=== PATIENT | female | born 1945 | race Caucasian/White ===

== ENCOUNTER 2017-01-29 20:28 | Emergency (ER) | payer MEDICARE, BC ==
--- NOTE | ~2017-01-29 | CT71 ---
[facility] A Service of [facility] RADIOLOGY TEXT RESULTS PATIENT: CRISTY FERNANDEZ LOCATION: MICHAEL : 45 UNIT #: [id number] AGE: [address]: Wilfrid Proctor MD SEX: F ORDER DR: [id number] [facility]. [place], [place] [address] [id number] E MR#: [id number] Acc #: [id number] NAME: CRISTY FERNANDEZ : 1945 SEX: F STUDY DATE/TIME: 01/29/2017 20:48 UNIT: MICHAEL ROOM: STUDY DESCRIPTION: CT Head Wo Contrast Attending Physician: Wilfrid Proctor M.D. Ordering Physician: Wilfrid Proctor M.D. Primary Care Physician: Sammy Canada M.D. MEDICAL IMAGING REPORT This report is preliminary unless electronic signature is present EXAM CT head, 01/29/2017 INDICATION Severe headache and vomiting. 1-day duration. TECHNIQUE CT head without contrast. This CT exam was performed with one or more of the following radiation dose reduction techniques: automatic exposure control, adjustment of mA and/or kV according to patient size, and iterative reconstruction. COMPARISON CT head 05/25/2016. FINDINGS Axial noncontrast images were obtained from the skull base to the vertex. Ventricular size and configuration are normal. There is no evidence of acute infarct or hemorrhage. There are no extra-axial fluid collections. No mass lesion or mass effect is seen. There are no skull fractures. IMPRESSION Normal noncontrast head CT. Dictated by... Jez Anderson M.D. THIS IS AN ELECTRONICALLY VERIFIED REPORT Jez Anderson M.D. at 01/30/2017 3:06 PM C/mic [facility] A Service of [facility] RADIOLOGY TEXT RESULTS PATIENT: CRISTY FERNANDEZ LOCATION: MICHAEL : [birth year] UNIT #: [id number] AGE: [address]: Wilfrid Proctor MD SEX: F ORDER DR: TD: 01/30/2017 01:26 JOB #: [id number] MEDICAL IMAGING REPORT Page 1 of 1 COPY
[2017-01-29 18:12] LABS: BASOPHIL# 0.1 X10e3 (0-0.3); BASOPHIL% 1.1 % (0-2.5); DIFF IND NO; EOSINOPHIL# 0.2 X10e3 (0-0.7); EOSINOPHIL% 2.2 % (0.0-7.0); HEMATOCRIT 42.7 % (35.0-45.0); HEMOGLOBIN 14.2 gm/dL (12.0-16.0); LYMPHOCYTE# 1.8 X10e3 (1.0-3.5); LYMPHOCYTE% 19.4 % (17.0-45.0); MEAN CELL VOLUME 93.6 FL (83-96); MEAN CORPUSCULAR HEMOGLOBIN 31.1 PG (28-34); MEAN CORPUSCULAR HGB CONC 33.2 g/dL (30-36); MEAN PLATELET VOLUME 7.9 FL (6.5-11.5); MONOCYTE# 0.7 X10e3 (0-1.0); MONOCYTE% 7.2 % (3.0-12.0); NEUTROPHIL# 6.6 X10e3 (1.5-7.1); NEUTROPHIL% 70.1 % (40-75); PLATELET COUNT 445 X10e3 (140-420); RED BLOOD COUNT 4.56 X10e (3.90-5.30); RED CELL DISTRIBUTION WIDTH 14.9 % (11.0-15.5); WHITE BLOOD COUNT 9.5 X10e3 (4.0-10.5)
[2017-01-29 18:34] LABS: ALBUMIN SERUM 3.6 g/dL (3.5-5.0); BILIRUBIN, DIRECT 0.1 mg/dL (0.0-0.2); BILIRUBIN,INDIRECT 0.4 mg/dL (0.0-0.9); BILIRUBIN,TOTAL 0.5 mg/dL (0.2-2.0); BUN/CREATININE RATIO 27.14; CALCIUM SERUM 9.1 mg/dL (8.4-10.2); CREATININE SERUM 0.7 mg/dL (0.6-1.4); GLOM FILT RATE Estimated 87.2 mL/min (>60); POTASSIUM 4.1 mmol/L (3.5-5.1); PROTEIN TOTAL SERUM 7.5 g/dL (6.0-8.3)
[~2017-01-29 20:28] MED LIST: AMITRIPTYLINE H50 MG PO; DEPAKOTE PO; PERCOCET PO; PROTONIX PO
== END 2017-01-29 22:05 | disposition home or self-care (01) ==
LOC: CED 20:28
PROVIDERS: Emergency Medicine
DX: R51 Headache (principal); Z90.710 Acquired absence of both cervix and uterus; Z90.49 Acquired absence of other specified parts of digestive tract
CPT/HCPCS: 36415; 70450; 80048; 80076; 85025; 96374; 96375; 99284; J2060; J2765; J2930

== ENCOUNTER 2017-05-24 05:56 | Emergency (ER) | payer MEDICARE, BC | END 2017-05-24 07:06 | disposition home or self-care (01) | LOC: CED 05:56 | DX: L23.9 Allergic contact dermatitis, unspecified cause (principal); Z90.710 Acquired absence of both cervix and uterus; Z90.49 Acquired absence of other specified parts of digestive tract; Z87.440 Personal history of urinary (tract) infections | CPT/HCPCS: 99282 ==